=== PATIENT | female | born 1970 | race Caucasian/White ===

== ENCOUNTER → 2016-09-18 | Outpatient (CLI) | payer MEDICAID ==
[~2016-09-18] MED LIST: ALBU8.5H INH; FENO145T18 PO; FESO4TAB PO; LEVO175T9 PO; LITH450T2 PO; QUET100T69 PO; ROSU20TA11 PO; ZIPR40CA27 PO
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
== END ==
LOC: IMA 18:16
PROVIDERS: ATTEND Orthopaedic Surgery
DX: M47.896 Other spondylosis, lumbar region (principal); M51.26 Other intervertebral disc displacement, lumbar region; M12.88 Other specific arthropathies, not elsewhere classified, other specified site; M43.16 Spondylolisthesis, lumbar region; V89.2XXA Person injured in unspecified motor-vehicle accident, traffic, initial encounter; M79.604 Pain in right leg

== ENCOUNTER 2017-04-23 01:02 | Inpatient (IN) ==
--- NOTE | 2017-04-23 01:15 | Emergency Department Report ---
Abdominal Pain HPI - General Stated Complaint: Abd pain Time Seen by Provider: 04/23/17 01:05 Source: patient Mode of arrival: ambulatory Limitations: no limitations - History of Present Illness HPI narrative: Patient has persistent diffuse abdominal pain with a feeling of her right upper quadrant mass. This has been ongoing for 3+ weeks, patient has seen her primary doctor several times, has been using up to 6 doses of MiraLAX a day, tapered doses of MiraLAX using Fleet enemas at home with very little stool output. Tonight the patient returns due to increasing pain and cramping. Patient has tried Aleve for pain without relief. I'll nausea without vomiting, no fevers, and pain the moment seems most focus in the right upper quadrant. However patient states that she has pain diffusely over the entire track of the colon from the right upper quadrant the epigastrium to the left upper quadrant and left lower quadrant. Patient continues to have only occasional hard marbly stool. - Related Data Home Medications Medication Instructions Recorded Confirmed Fenofibrate Nanocrystallized 145 mg PO DAILY #0 11/11/12 04/23/17 [Fenofibrate] Rosuvastatin Calcium [Crestor] 20 mg PO DAILY #0 11/11/12 04/23/17 Fesoterodine SR [Toviaz] 4 mg PO DAILY #0 01/20/14 04/23/17 [place] Carbonate [[place] 450 mg PO BID #0 07/20/15 04/23/17 Carbonate ER] Quetiapine Fumarate 300 mg PO HS #0 01/10/16 04/23/17 ziprasidone 60 mg capsule 40 mg PO BID 01/09/17 04/23/17 Benztropine Mesylate 1 mg PO BID 04/23/17 04/23/17 HydrOXYzine [Atarax] 50 mg PO HS 04/23/17 04/23/17 HydrOXYzine [Atarax] 100 mg PO BIDBL 04/23/17 04/23/17 Levothyroxine Sodium 200 mcg PO DAILY 04/23/17 04/23/17 Levothyroxine Sodium [Levoxyl] 1 tab PO DAILY 04/23/17 04/23/17 Allergies Allergy/AdvReac Type Severity Reaction Status Date / Time levofloxacin Allergy Intermediate BLISTERING Verified 04/23/17 01:52 quetiapine [From Seroquel] Allergy Intermediate Drowsy Verified 04/23/17 01:52 Review of Systems All systems: reviewed and negative except as stated [facility] Medical History (Last Reviewed 01/15/17 @ 09:55 by CAMMIE Trejo) Constipation (Acute Medical) Balance disorder (Chronic Medical) Tremor (Chronic Medical) Stroke (Chronic Medical) Migraine (Chronic Medical) Anxiety (Chronic Medical) Thyroid disease (Chronic Medical) Cataracts, bilateral (Chronic Medical) Medical History Updates: Bi-polar. Constipation Family History: Family History (Last Reviewed 01/15/17 @ 09:55 by CAMMIE Trejo) Mother Arthritis High blood pressure Inflammatory bowel disease Thyroid disease Father High blood pressure High cholesterol - Social History Smoking status: Current every day smoker Physical Exam - Limitations Limitations: no limitations - General General appearance: alert - Normal Exams: Head:: Normocephalic without trauma Eyes:: Pupils are PERRLA w/ EOMI, No scleral icterus, irritation, or foreign bodies noted ENMT:: No facial trauma, nasal exudates, pharyngeal erythema, or exudates are noted Neck:: Full range of motion, without adenopathy, JVD, bruits or thyromegaly Chest/Respirations:: Clear all atkinson, with good airflow, and symmetry bilaterally Cardiovascular:: Regular rate and rhythm, without murmur or gallop, Pulses 2+ all extremities, capillary refill, <2 seconds all extremities Lymphatic:: No lymphadenopathy, or lymphedema noted Musculoskeletal:: No tenderness, or deformity noted, good range of motion, all extremities Integumentary:: No rashes, hives, or bruising noted, hair and nails, without abnormality Neurological:: Patient is alert, and oriented, cranial nerves, motor/sensory/ cerebellar, exams w/o gross deficits, to observation Psychiatric:: Patient exhibits, appropriate attention, emotion and affect - Abdominal Exam Abdominal exam: Present: soft, tenderness (moderate diffuse left-sided tenderness, sharp right tenderness and right upper quadrant with a palpable mass that is also quite tender.), diminished bowel sounds. Absent: distention, hyperactive bowel sounds, organomegaly, trauma, incision, psoas sign, obturator sign, Campbell's sign, Rovsing's sign, tenderness at McBurney's Point, mass, bruit , pulsatile mass, hernia, scar Abdominal Pain - MDM Narrative Medical decision making narrative: Looking at the patient's previous lab, her creatinine continues to be elevated in the 1.5-1.6 range. This seems to indicate either renal insufficiency or significant ongoing dehydration. Examining the patient with significant dry mouth may indicate dehydration. Patient is given 2 L IV bolus, Toradol and Reglan IV for pain and cramps as well as nausea - CBC - normal CMP/L - normal UA/P - concentrated but normal CT abdomen/pelvis - large stool filled colon, constipation, with wall thickening and adjacent fat stranding involving the proximal duodenum concerning for an underlying ulcer. Patient did require additional dose of Dilaudid for pain control. Case is discussed with Dr. Fleming, we will admit the patient for enemas until clear, with surgical consultation and possible EGD. - Lab Data Result diagrams: 04/23/17 01:27 04/23/17 01:27 Disposition Clinical Impression: Duodenal ulcer Constipation Qualifiers: Constipation type: chronic idiopathic constipation Qualified Code(s): K59.04 - Chronic idiopathic constipation Disposition: To NM Condition: Improved Prescriptions: No Action Fenofibrate Nanocrystallized [Fenofibrate] 145 mg PO DAILY #0 Rosuvastatin Calcium [Crestor] 20 mg PO DAILY #0 Fesoterodine SR [Toviaz] 4 mg PO DAILY #0 Levothyroxine Sodium [Levoxyl] 1 tab PO DAILY Benztropine Mesylate 1 mg PO BID HydrOXYzine [Atarax] 50 mg PO HS HydrOXYzine [Atarax] 100 mg PO BIDBL Levothyroxine Sodium 200 mcg PO DAILY [place] Carbonate [[place] Carbonate ER] 450 mg PO BID #0 Quetiapine Fumarate 300 mg PO HS #0 ziprasidone 60 mg capsule 40 mg PO BID Referrals: Bernabe Atkinson MD [Primary Care Provider] - - Seen By: physician
[2017-04-23] MEDS ORDERED: METOCLOPRAMIDE 10mg/2ml INJECTION IVP ONE (01:32)
[2017-04-23] MEDS ORDERED: KETOROLAC 30 MG/ML INJECTION IVP ONE (01:32)
[2017-04-23] MEDS: NS 1,000 ML IV SCH ×4 (01:32→14:16)
[2017-04-23] MEDS: SALINE FLUSH 10ml SYRINGE IVF PRN ×2 (01:33→05:12)
[2017-04-23] MEDS ORDERED: NS 100 ML ONE (01:49)
[2017-04-23] MEDS ORDERED: SALINE FLUSH 10ml SYRINGE ONE (01:49)
[2017-04-23] MEDS ORDERED: IODIXANOL 320mg/ml 100ml INJECTION IV ONE (01:49)
--- OUTSIDE RECORDS SUMMARY | 2017-04-23 02:06 | External Medical Summary ---
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
--- OUTSIDE RECORDS SUMMARY | 2017-04-23 02:07 | External Medical Summary ---
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
--- OUTSIDE RECORDS SUMMARY | 2017-04-23 02:07 | External Medical Summary ---
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
--- OUTSIDE RECORDS SUMMARY | 2017-04-23 02:07 | External Medical Summary ---
:1970 Author Organization [employer] Care Team Providers Name Role Phone Maya Webster Provider Role Unavailable Allergies No Known Allergies Problems Problem Type Condition Code Onset Dates Condition Status Problem Personality disorder, unspecified F60.9 Active Problem Bipolar disorder, current episode F31.62 Active mixed, moderate Problem Opioid dependence, in remission F11.21 Active Problem Panic disorder [episodic paroxysmal F41.0 Active anxiety] without agoraphobia Assessment Other [facility] (current) drug Z79.899 Active therapy Medications Medication Code System Code Instructions Start Date End Date Status Dosage Clonazepam [facility] [address] 2 MG Orally Once a one tab -01 day PRN Results No Known Results Summary Purpose [employer]ClinicalWorks Submission
--- OUTSIDE RECORDS SUMMARY | 2017-04-23 02:07 | External Medical Summary ---
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 Assessment Panic disorder without 300.01 Active agoraphobia Medications Medication Code Code Instructions Start End Status Dosage System Date Date Clonazepam NDC 95528-24 2 MG Orally three one tab 34-01 times a day PRN anxiety Ziprasidone HCl NDC 26323-97 60 MG Orally 1 capsule 71-08 twice a day after with food bkfst and supper for mood stabilization Fenofibrate NDC 67926-52 145 MG Orally 1 tablet 60-98 Once a day Crestor NDC 65106-91 20 MG Orally Once 1 tablet 52-39 a day Benztropine NDC 06874-81 1 MG Orally three 1 tab by Mesylate 00-00 times a day mouth Haloperidol NDC 27550-07 5 MG Orally four 1 tablet 27-01 times a day PRN agitation [place] Carbonate NDC 89160-60 450 MG Orally Feb 24, one tablet ER 20-25 twice daily 2014 every AM and PM Toviaz NDC 90479-42 4 MG Orally Once 1 tablet 42-30 a day Levothyroxine NDC 20905-84 150 MCG Orally 1 tablet Sodium 57-00 Once a day on an empty stomach in the morning [place] Carbon[place] NDC [address]-62 150 MG Orally 1 capsule 26-25 once daily every [place] Seroquel [place]R NDC 75200-67 50 MG Orally once 1/2 tab at 80-39 a day for moods bedtime; if needed may take two 1/2 tabs Procedures Procedure Coding System Code Date OFFICE VISIT, EST-MOD. COMPLEXITY (25 MIN) CPT-4 67208 September 08, 2014 Vital Signs Date/Time: September 08, 2014 Height 68.75 in Weight 253.5 lbs Temperature 98.6 F Blood Pressure Diastolic 86 mm Hg Blood Pressure Systolic 118 mm Hg Cardiac Monitoring Heart Rate 80 /min BMI 37.70 Index Respiratory Rate 16 /min Results No Known Results Summary Purpose eClinicalWorks Submission
--- OUTSIDE RECORDS SUMMARY | 2017-04-23 02:07 | External Medical Summary ---
[...] Instructions Start End Date Status Dosage Date Benztropine [facility] [address]-49 1 MG Orally in 1 tab by Mesylate 00-00 the AM, noon, mouth and evening Results No Known Results Summary Purpose [employer]ClinicalWorks Submission
--- OUTSIDE RECORDS SUMMARY | 2017-04-23 02:07 | External Medical Summary ---
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
--- OUTSIDE RECORDS SUMMARY | 2017-04-23 02:07 | External Medical Summary ---
[...] F41.0 Active anxiety] without agoraphobia Assessment Other [facility] (current) drug Z79.899 Active therapy Medications Medication Code System Code Instructions Start End Date Status Dosage Date [place] NDC [address] 150 MG Orally Jan 29, one daily Carbonate -2015 in the AM [place] NDC [address]-199 300 MG Orally Aug 03, one tablet Carbonate ER 1-25 daily 2014 every PM Results No Known Results Summary Purpose [employer]ClinicalWorks Submission
--- OUTSIDE RECORDS SUMMARY | 2017-04-23 02:08 | External Medical Summary ---
[...] Instructions Start Date End Date Status Dosage Seroquel [facility] [address] 100 MG Orally September 10, 1 tablet at 1-10 Once a day 2014 bedtime Results No Known Results Summary Purpose [employer]ClinicalWorks Submission
--- OUTSIDE RECORDS SUMMARY | 2017-04-23 02:11 | External Medical Summary ---
:1970 Author Organization eClinicalWorks Care Team Providers Name Role Phone Beverly Martinez Provider Role Unavailable Allergies No Known Allergies Problems Problem Type Condition Code Onset Dates Condition Status Problem Personality disorder, unspecified F60.9 Active Problem Bipolar disorder, current episode F31.62 Active mixed, moderate Problem Opioid dependence, in remission F11.21 Active Problem Panic disorder [episodic paroxysmal F41.0 Active anxiety] without agoraphobia Assessment Other [facility]current[facility] drug Z79.899 Active therapy Medications Medication Code Code Instructions Start End Status Dosage System Date [place] T[place]iaz NDC 98245-87 4 MG Orally Once 1 tablet 42-30 a day Benztropine NDC 33078-14 1 MG Orally in 1 tab by Mesylate 00-00 the AM, noon, [place] [address]-50 40 MG Orally 1 capsule 70-08 twice a day after with food bkfst and supper for mood stabilization HydrOXYzine HCl NDC 80749-81 50 MG Orally up November 16, 1 tablet 62-05 to three times a 2014 day as needed for anxiety Crestor NDC 11845-53 20 MG Orally Once 1 tablet 52-39 a day Fenofibrate NDC 269[address]-38 145 MG Orally 1 tablet 60-98 Once a day [place]onazepam NDC [address]268-19 2 MG Orally Once one tab 34-01 a day PRN [place] Carbonate NDC 439[address]-40 300 MG Orally Mar 09, one tablet ER 21-25 twice daily 2015 Seroquel NDC 03343-76 100 MG Orally September 10, 1 tablet 71-10 Once a day 2014 [place] [address]-05 200 MCG Orally 1 tablet Sodium 58-00 Once a day on an empty stomach in the morning Procedures Procedure Coding System Code Date LITHIUM CPT-4 82273 Mar 12, 2016 Results No Known Results Summary Purpose eClinicalWorks Submission
--- OUTSIDE RECORDS SUMMARY | 2017-04-23 02:11 | External Medical Summary ---
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 Assessment Other [facility] (current) drug Z79.899 Active therapy Problem Personality disorder, unspecified F60.9 Active Problem Bipolar disorder, current episode F31.62 Active mixed, moderate Problem Opioid dependence, in remission F11.21 Active Assessment Encounter for long-term (current) V58.69 Active use of other medications Assessment Panic disorder [episodic paroxysmal F41.0 Active anxiety] without agoraphobia Problem Panic disorder [episodic paroxysmal F41.0 Active anxiety] without agoraphobia Assessment Bipolar disorder, current episode F31.62 Active mixed, moderate Medications No Known Medications Results No Known Results Summary Purpose [employer] Submission
--- OUTSIDE RECORDS SUMMARY | 2017-04-23 02:11 | External Medical Summary ---
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
--- OUTSIDE RECORDS SUMMARY | 2017-04-23 02:16 | External Medical Summary ---
[...] Instructions Start End Date Status Dosage Date [place] [facility] [address]-118 450 MG Orally Aug 03, one tablet Carbonate ER 0-25 twice daily 2014 every AM and PM Results No Known Results Summary Purpose [employer]ClinicalWorks Submission
--- OUTSIDE RECORDS SUMMARY | 2017-04-23 02:19 | External Medical Summary ---
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 Problem Panic disorder without 300.01 Active agoraphobia Problem Combinations of drug dependence 304.80 Active excluding opioid type drug, unspecified abuse Problem Bipolar I disorder, most recent 296.62 Active episode (or current) mixed, moderate Assessment Panic disorder without 300.01 Active agoraphobia Assessment Combinations of drug dependence 304.80 Active excluding opioid type drug, unspecified abuse Problem 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 [address]70[address]-11 60 MG Orally 1 capsule 71-08 twice a day after with food bkfst and supper for mood stabilization [place]ero[place] NDC [address]-05 50 MG Orally once 1/2 tab at 80-39 a day for moods bedtime; if needed may take two 1/2 [place] [address]-98 100 MG Orally Aug 03, /2 to 38-01 Once a day 2014 tablet at bedtime [place] [address]-29 1 MG Orally twice 1 tab by Mesylate 00-00 a day mouth [place] Carbonate NDC 418[address]-25 150 mg Orally 1 capsule 26-25 once daily every AM Crestor NDC 57081-10 20 MG Orally Once 1 tablet 52-39 a day Fenofibrate NDC 07239-76 145 MG Orally 1 tablet 60-98 Once a day Toviaz NDC 55741-32 4 MG Orally Once 1 tablet 42-30 a day Haloperidol NDC 21523-28 5 MG Orally four 1 tablet 27-01 times a day PRN agitation Clonazepam NDC 65764-79 2 MG Orally three one tab 34-01 times a day PRN anxiety Levothyroxine [facility] 11616-37 150 MCG Orally 1 tablet Sodium 57-00 Once a day on an empty stomach in the morning [place] Carbonate [facility] 730[address]-27 450 MG Orally Aug 03, one tablet ER 20-25 twice daily 2014 every AM and PM Procedures Procedure Coding System Code Date OFFICE VISIT, EST-MOD. COMPLEXITY (25 MIN) CPT-4 45291 Aug 03, 2014 Vital Signs Date/Time: Aug 03, 2014 Height 68.75 in Weight 258.75 lbs Temperature 98.9 F Blood Pressure Diastolic 92 mm Hg Blood Pressure Systolic 114 mm Hg Cardiac Monitoring Heart Rate 80 /min BMI 38.48 Index Respiratory Rate 28 /min Results No Known Results Summary Purpose eClinicalWorks Submission
--- OUTSIDE RECORDS SUMMARY | 2017-04-23 02:19 | External Medical Summary ---
[...] Start End Status Dosage System [place] NDC 84139-45 20 MG Orally Once 1 tablet 52-39 a day Fenofibrate NDC 57575-16 145 MG Orally 1 tablet 60-98 Once a day Seroquel NDC 19861-58 50 MG Orally Once September 10, 1 tablet 78-10 a day 2014 at bedtime Haloperidol NDC 20196-00 5 MG Orally four 1 tablet 27-01 times a day PRN agitation Ziprasidone HCl NDC 47244-58 40 MG Orally 1 capsule 71-08 twice a day after with food bkfst and supper for mood stabilization [place] Carbonate NDC 58521-09 450 MG Orally Aug 03, one tablet ER 20-25 twice daily 2014 every AM and PM Clonazepam NDC 39430-79 2 MG Orally three one tab 34-01 times a day PRN anxiety [place] Carbonate NDC 89830-76 150 MG Orally 1 capsule 26-25 once daily every AM Benztropine NDC 91911-70 1 MG Orally three 1 tab by Mesylate 00-00 times a day mouth Levothyroxine NDC 20515-02 150 MCG Orally 1 tablet Sodium 57-00 Once a day on an empty stomach in the morning Toviaz NDC 48801-38 4 MG Orally Once 1 tablet 42-30 a day Procedures Procedure Coding System Code Date LIPID PANEL CPT-4 11630 October 20, 2014 CMP CPT-4 08246 October 20, 2014 Results No Known Results Summary Purpose [employer]ClinicalWorks Submission
--- OUTSIDE RECORDS SUMMARY | 2017-04-23 02:19 | External Medical Summary ---
:1970 Author Organization eClinicalWorks Care Team Providers Name Role Phone Maya Webster Provider Role Unavailable Allergies, Adverse Reactions, Alerts Substance Reaction Event Type Seroquel XR sedation Drug Allergy Levaquin rash Drug Allergy Problems Problem Type Condition Code Onset Dates Condition Status Problem Personality disorder, unspecified F60.9 Active Problem Bipolar disorder, current episode F31.62 Active mixed, moderate Problem Opioid dependence, in remission F11.21 Active Assessment Bipolar disorder, current episode F31.62 Active mixed, moderate Problem Panic disorder [episodic paroxysmal F41.0 Active anxiety] without agoraphobia Assessment Panic disorder [episodic paroxysmal F41.0 Active anxiety] without agoraphobia Medications Medication Code Code Instructions Start End Status Dosage System Date Date Benztropine NDC 68048-69 1 MG Orally in 1 tab by Mesylate 00-00 the AM, noon, and mouth evening [place] Carbonate NDC 32523-13 450 MG Orally Aug 03, one tablet ER 20-25 twice daily 2014 every AM and PM Clonazepam NDC 19154-54 2 MG Orally up to one tab 34-01 twice a day as needed Toviaz NDC 48659-16 4 MG Orally Once 1 tablet 42-30 a day HydrOXYzine HCl NDC 46359-41 50 MG Orally up November 16, 1-2 tablet 62-05 to three times a 2014 day as needed for anxiety Levothyroxine NDC 67293-32 175 MCG Orally 1 tablet Sodium 17-01 Once a day on an empty stomach in the morning Ziprasidone HCl NDC 70297-73 40 MG Orally 1 capsule 70-08 twice a day after with food bkfst and supper for mood stabilization Seroquel NDC 05736-34 100 MG Orally September 10, 1 tablet 71-10 Once a day 2014 at bedtime Fenofibrate NDC 54932-52 145 MG Orally 1 tablet 60-98 Once a day [place] Carbonate NDC 45628-54 150 MG Orally 1 capsule 26-25 once daily every am Crestor NDC 29087-01 20 MG Orally Once 1 tablet 52-39 a day Procedures Procedure Coding System Code Date OFFICE VISIT, EST-MOD. COMPLEXITY (25 MIN) CPT-4 16026 September 27, 2015 Vital Signs Date/Time: September 27, 2015 Temperature 98.6 F Height 68.75 in Weight 269.8 lbs Blood Pressure Diastolic 80 mm Hg Blood Pressure Systolic 116 mm Hg Cardiac Monitoring Heart Rate 80 /min BMI 40.13 Index Respiratory Rate 18 /min Results No Known Results Summary Purpose eClinicalWorks Submission
--- OUTSIDE RECORDS SUMMARY | 2017-04-23 02:19 | External Medical Summary ---
[...] Instructions Start End Date Status Dosage Date HydrOXYzine HCl [facility] [address]-720 50 MG Orally up November 16, 1 tablet 2-05 to three times a 2014 day as needed for anxiety Results No Known Results Summary Purpose eClinicalWorks Submission
--- OUTSIDE RECORDS SUMMARY | 2017-04-23 02:19 | External Medical Summary ---
[...] Medications Medication Code Code Instructions Start End Date Status Dosage System Date Ziprasidone HCl [facility] 02151-07 40 MG Orally 1 capsule 70-08 twice a day after with food bkfst and supper for mood stabilization Results No Known Results Summary Purpose [employer] Submission
--- OUTSIDE RECORDS SUMMARY | 2017-04-23 02:19 | External Medical Summary ---
[...] Instructions Start End Date Status Dosage Date Seroquel NDC 52125-30 50 MG Orally September 10, 1 tablet at 78-10 Once a day 2014 bedtime [place] NDC 90390-78 150 MG Orally 1 capsule Carbonate 26-25 once daily every AM Clonazepam NDC 72877-47 2 MG Orally one tab 34-01 three times a day PRN anxiety Results No Known Results Summary Purpose eClinicalWorks Submission
--- OUTSIDE RECORDS SUMMARY | 2017-04-23 02:21 | External Medical Summary ---
[...] Start Date End Date Status Dosage Clonazepam [facility] [address] 2 MG Orally three one tab -01 times a day PRN anxiety Results No Known Results Summary Purpose [employer] Submission
--- OUTSIDE RECORDS SUMMARY | 2017-04-23 02:23 | External Medical Summary ---
:1970 Author Organization eClinicalWorks Care Team Providers Name Role Phone Martinez Beverly Provider Role Unavailable Allergies No Known Allergies Problems Problem Type Condition Code Onset Dates Condition Status Problem Personality disorder, unspecified F60.9 Active Problem Bipolar disorder, current episode F31.62 Active mixed, moderate Problem Opioid dependence, in remission F11.21 Active Problem Panic disorder [episodic paroxysmal F41.0 Active anxiety] without agoraphobia Assessment Bipolar disorder, current episode F31.62 Active mixed, moderate Medications Medication Code Code Instructions Start End Status Dosage System Date Date Fenofibrate NDC 29325-36 145 MG Orally 1 tablet 60-98 Once a day Toviaz NDC 46104-64 4 MG Orally Once 1 tablet 42-30 a day Clonazepam NDC 81510-94 2 MG Orally Once one tab 34-01 [place] [address]-36 40 MG Orally 1 capsule 70-08 twice a day after with food bkfst and supper for mood stabilization Benztropine NDC 58579-67 1 MG Orally in 1 tab by Mesylate 00-00 the AM, noon, and mouth evening Seroquel NDC 03061-72 100 MG Orally September 10, 1 tablet 71-10 Once a day 2014 at bedtime Crestor NDC 90675-98 20 MG Orally Once 1 tablet 52-39 [place] [address]-60 200 MCG Orally 1 tablet Sodium 58-00 Once a day on an empty stomach in the morning [place] Carbonate NDC 10280-86 450 MG Orally Mar 09, one tablet ER 20-25 twice daily 2015 [place] [address]-80 50 MG Orally up November 16, 1-2 tablet 62-05 to three times a 2014 day as needed for anxiety Procedures Procedure Coding System Code Date LITHIUM CPT-4 55004 Apr 17, 2016 Results No Known Results Summary Purpose eClinicalWorks Submission
--- OUTSIDE RECORDS SUMMARY | 2017-04-23 02:23 | External Medical Summary ---
[...] End Date Status Dosage Date HydrOXYzine HCl [facility] 02908-80 50 MG Orally up November 16, 1-2 tablet 62-05 to three times a 2014 day as needed for anxiety Results No Known Results Summary Purpose [employer] Submission
--- OUTSIDE RECORDS SUMMARY | 2017-04-23 02:23 | External Medical Summary ---
[...] Active excluding opioid type drug, unspecified abuse Assessment Panic disorder [episodic paroxysmal F41.0 Active anxiety] without agoraphobia Problem Panic disorder [episodic paroxysmal F41.0 Active anxiety] without agoraphobia Assessment Bipolar disorder, current episode F31.62 Active mixed, moderate Medications Medication Code Code Instructions Start End Status Dosage System Date Date Benztropine NDC 22496-70 1 MG Orally two 1 tab by Mesylate 00-00 times a day mouth Crestor NDC 10735-17 20 MG Orally Once 1 tablet 52-39 a day [place] Carbonate NDC 72461-45 150 MG Orally 1 capsule 26-25 once daily every am [place] Carbonate NDC 84960-16 450 MG Orally Aug 03, one tablet ER 20-25 twice daily 2014 every AM and PM Levothyroxine NDC 49361-21 175 MCG Orally 1 tablet Sodium 17-01 Once a day on an empty stomach in the morning Clonazepam NDC 79574-30 2 MG Orally up to one tab 34-01 twice a day as needed Fenofibrate NDC 72921-88 145 MG Orally 1 tablet 60-98 Once a day Toviaz NDC 72073-30 4 MG Orally Once 1 tablet 42-30 a day Seroquel NDC 07226-85 50 MG Orally Once September 10, 1-2 78-10 a day 2015 tablets [place] [address]-02 40 MG Orally 1 capsule 70-08 twice a day after with food bkfst and supper for mood stabilization HydrOXYzine HCl NDC 37661-89 50 MG Orally up November 16, 1 tablet 62-05 to three times a 2014 day as needed for anxiety Procedures Procedure Coding System Code Date OFFICE VISIT, EST-MOD. COMPLEXITY (25 MIN) CPT-4 96963 Apr 12, 2015 Vital Signs Date/Time: Apr 12, 2015 Height 68.75 in Weight 264.8 lbs Temperature 98.8 F Blood Pressure Diastolic 80 mm Hg Blood Pressure Systolic 116 mm Hg Cardiac Monitoring Heart Rate 82 /min BMI 39.38 Index Respiratory Rate 18 /min Results No Known Results Summary Purpose eClinicalWorks Submission
--- OUTSIDE RECORDS SUMMARY | 2017-04-23 02:23 | External Medical Summary ---
[...] Instructions Start End Date Status Dosage Date [place] [facility] [address]38[address]-402 300 MG Orally Aug 03, one tablet Carbonate ER 1-25 daily 2014 every PM Results No Known Results Summary Purpose eClinicalWorks Submission
--- OUTSIDE RECORDS SUMMARY | 2017-04-23 02:23 | External Medical Summary ---
[...] F41.0 Active anxiety] without agoraphobia Assessment Other long term care social worker (current) drug Z79.899 Active therapy Medications Medication Code System Code Instructions Start End Date Status Dosage Date HydrOXYzine HCl NDC 55975-27 50 MG Orally up November 16, 1 tablet 62-05 to three times a 2014 day as needed for anxiety Benztropine NDC 14851-01 1 MG Orally in 1 tab by Mesylate 00-00 the AM, noon, mouth and evening [place] NDC 88790-80 300 MG Orally Feb 24, one tablet Carbonate ER 21-25 twice daily 2014 every AM and PM Clonazepam NDC 63915-29 2 MG Orally up one tab 34-01 to twice a day as needed Results No Known Results Summary Purpose eClinicalWorks Submission
--- OUTSIDE RECORDS SUMMARY | 2017-04-23 02:23 | External Medical Summary ---
:1970 Author Organization eClinicalWorks Care Team Providers Name Role Beverly Watkins Provider Role Unavailable Allergies No Known Allergies Problems Problem Type Condition Code Onset Dates Condition Status Problem Personality disorder, unspecified F60.9 Active Problem Bipolar disorder, current episode F31.62 Active mixed, moderate Problem Opioid dependence, in remission F11.21 Active Problem Panic disorder [episodic paroxysmal F41.0 Active anxiety] without agoraphobia Medications Medication Code System Code Instructions Start Date End Date Status Dosage Clonazepam [facility] [address] 2 MG Orally Once a one tab -01 day PRN Results No Known Results Summary Purpose eClinicalWorks Submission
--- OUTSIDE RECORDS SUMMARY | 2017-04-23 02:23 | External Medical Summary ---
[...] End Date Status Dosage Date Seroquel NDC 43556-63 50 MG Orally September 10, 1 tablet at 78-10 Once a day 2014 bedtime [place] NDC 82120-36 150 MG Orally 1 capsule Carbonate 26-25 once daily every AM Clonazepam NDC 31081-84 2 MG Orally one tab 34-01 three times a day PRN anxiety Results No Known Results Summary Purpose eClinicalWorks Submission
[2017-04-23] MEDS ORDERED: HYDROMORPHONE 2 MG/ML INJECTION IVP ONE (02:36)
[2017-04-23] MEDS ORDERED: INFLUENZA VAC. INJ. ADMIN CHARGE INJ ONE (03:22)
[2017-04-23] MEDS ORDERED: ONDANSETRON 4 MG/2 ML INJECTION IVP PRN (03:36)
[2017-04-23] MEDS ORDERED: POLYETHYL. GLYCOL 3350 BOTTLE 238 GM PO SCH (03:36)
[2017-04-23 03:40] VITALS: BMI 42.4
--- NOTE | 2017-04-23 04:11 | History & Physical Report ---
History of Present Illness Date: 04/23/17 Chief complaint: abdomen pain HPI: This is a 46 y/o female with a history of chronic constipation who presents to the ED tonight due to increased abdomen pain with ongoing nausea. The patient has been to the ED x 2 in the past week and seen PCP x 3 . The patient has been on miralax and enema at home without effect. Because of increased abdomen pain the patient had a CT of the abdomen which demonstrated changes in proximal duodenum which raised suspicion of duodenal ulcer. At this time the patient is to be admitted for further assessment of her chronic constipation and ongoing concern for duodenal ulcer. . Review of Systems Review of systems: no headache, no fever, chills or sweats, no neck pain, no chest pain, no cough, no congestion, abdomen pain in epigastric region with nausea no emesis, last normal bm ? 6 weeks ago and last bm ? 2 weeks ago. No blood in stools. This is worse than usual for the patient. no skin rashes, no focal neuro complaints. 10 point ROS otherwise negative except for outlined above. [facility] Patient Stated Medical History Migraine Yes Other GI Yes: constipation Bipolar Disorder Yes Clinic Medical History (Last Reviewed 01/15/17 @ 09:55 by CAMMIE Trejo) Constipation (Acute Medical) Duodenal ulcer (Acute Medical) Balance disorder (Chronic Medical) Tremor (Chronic Medical) Stroke (Chronic Medical) Migraine (Chronic Medical) Anxiety (Chronic Medical) Thyroid disease (Chronic Medical) Cataracts, bilateral (Chronic Medical) Medical History Updates: Bi-polar. Constipation Family History: Family History (Last Reviewed 01/15/17 @ 09:55 by CAMMIE Trejo) Mother Arthritis High blood pressure Inflammatory bowel disease Thyroid disease Father High blood pressure High cholesterol - Social History Smoking status: Current every day smoker Substance use type: does not use Alcohol intake frequency: does not drink Household members: family service: No Current occupational status: unemployed, disabled Current occupational exposures/hazards: No Does patient use chewing tobacco?: No Current residence: Apartment/Private Home Medications Home Medications Medication Instructions Recorded Confirmed Type Fenofibrate Nanocrystallized 145 mg PO DAILY #0 11/11/12 04/23/17 History [Fenofibrate] Rosuvastatin Calcium [Crestor] 20 mg PO DAILY #0 11/11/12 04/23/17 History Fesoterodine SR [Toviaz] 4 mg PO DAILY #0 01/20/14 04/23/17 History [place] Carbonate [[place] 450 mg PO BID #0 07/20/15 04/23/17 History Carbonate ER] Quetiapine Fumarate 300 mg PO HS #0 01/10/16 04/23/17 History ziprasidone 60 mg capsule 40 mg PO BID 01/09/17 04/23/17 History Benztropine Mesylate 1 mg PO BID 04/23/17 04/23/17 History HydrOXYzine [Atarax] 50 mg PO HS 04/23/17 04/23/17 History HydrOXYzine [Atarax] 100 mg PO BIDBL 04/23/17 04/23/17 History Levothyroxine Sodium 200 mcg PO DAILY 04/23/17 04/23/17 History Levothyroxine Sodium [Levoxyl] 1 tab PO DAILY 04/23/17 04/23/17 History Allergies Allergy/AdvReac Type Severity Reaction Status Date / Time levofloxacin Allergy Intermediate BLISTERING Verified 04/23/17 01:52 quetiapine [From Seroquel] Allergy Intermediate Drowsy Verified 04/23/17 01:52 Exam Vital Signs: Temperature 97.9 F 04/23/17 01:05 Pulse Rate 70 04/23/17 02:45 Respiratory Rate 18 04/23/17 02:45 Blood Pressure 177/98 H 04/23/17 03:15 Pulse Oximetry 95 04/23/17 02:45 Telemetry Rhythm: Sinus Rhythm Height/Weight/BMI: Height 1.73 m Weight 126.6 kg Body Mass Index 42.4 - Constitutional Present: no acute distress, well nourished, well developed, morbidly obese, cooperative - Routine HEENT Exam Head: Present: normocephalic, atraumatic Eye: Present: EOMI, conjunctivae pink. Absent: scleral injection ENT: Present: mucous membranes moist - Routine Neck Exam Present: supple, full ROM - Routine Respiratory Exam Present: CTA bilaterally. Absent: rales, wheezes - Routine Cardiovascular Exam Present: RRR, no murmur - Routine Abdominal Exam Present: soft, normoactive bowel sounds, non distended Comments: morbidly obese, bowel sounds normal. mild tender to epigastric region - Routine Extremities Exam Present: full ROM - Routine Back/Spine/Pelvis Exam Back/Spine: Present: full ROM - Routine Skin Exam Present: dry - Routine Neurological Exam Present: alert, oriented X3 - Routine Psychiatric Exam Present: normal affect, normal thought process Results - Labs CBC & Chem 7: 04/23/17 04:36 04/23/17 04:36 Labs: labs reviewed and demonstrates worening renal funciton - Imaging and Cardiology CT scan - abdomen Additional comments: reported to have sig stool in rectum and sigmoid colon. fat stranding surrounding prox duodenum concerning for DU no evidence of free air Assessment and Plan (1) Obstipation Current visit: Yes Status: Acute (2) Duodenal ulcer Current visit: Yes Status: Acute (3) Anxiety Current visit: No Status: Chronic (4) Thyroid disease Current visit: No Status: Chronic (5) Bipolar 1 disorder Current visit: Yes Status: Acute (6) Acute kidney injury Current visit: Yes Status: Acute (7) Hypertension Current visit: Yes Status: Acute Assessment and Plan: 1. obstipation acute POA: start with miralax and enema. once comfortable regarding DU? will start more agressive approach including golytly. This patient needs to minimize narcotics. check TSH to ensure adequate replacement 2. duodenal ulcer acute POA: iv ppi. reasses. npo incase need to do endoscopy in next 24 hours 3. acute kidney injury POA: ivf, and repeat labs. probable secondary to decreased po intake. must worry about meds she is on and affect of decreased grf including lithium. hold lithium and check level. 4. Bipolar disease: appears intact. patient readily recognizes she has. again work with pharmacy to dose with her meds that she is taking and renal ds 5. dvt ppx; scd 6. gastric ppx; ppi 7. hypothyroid chronic POA: check tsh, free t4, pertains to constipation I have independently interviewed and examined the patient. Chart reviewed. Above note reviewed and concur. 46-year-old with hx of constipation. She saw Dr. Atkinson on 04/17. Her last bowel movement might have been on 04/10. She tried Miralax and Milk of Mag but was having no results. She also was seen in the er twice. CT a/p raised the possibility of duodenitis vs. ulcer. Patient was placed in observation. She has had an enema and thinks things might be moving. She has had flatus. She has no appetite and has had nausea. PH/SH/FH reviewed. Would add family history of inflammatory bowel - her mother. ROS: see above. remainder of 10 point ros is negative. PE:VS: 97.0 133/100 HR 65 RR18 100% RA GEN: nad HEENT: nc/at, perrl, eomi neck: supple lungs: ctab cv: rrr w/o m,r,g abd: s/nt/nd, hypoactive bs ext: no edema neuro: cn II-XII intact psych: anxious Impression obstipation possible duodenal ulcer LEODAN vs. CKD bipolar disease elevated bp hypothyroid tobacco abuse Plan Enemas q2 until results. Start on scheduled Miralax. BID IV Protonix. HGB is wnl. Can defer EGD. Per patient, PCP has encouraged her to have colonoscopy, also. Continue IVF. Check urine Na, Cr. Monitor BP. Continue home psych meds. TSH elevated. Check free t4. Nicotine patch available. DVT Prophylaxis: SCD's GI Prophylaxis: Protonix Resuscitation Status: Full Code - Time spent with patient Time with patient PN: 50 minutes Hospital Course Summary Disclaimer: The visit summary below is not to be considered part of the above Progress Note. Hospital Course: 04/23/17 16:28 Impression obstipation possible duodenal ulcer LEODAN vs. CKD bipolar disease elevated bp hypothyroid tobacco abuse Plan Enemas q2 until results. Start on scheduled Miralax. BID IV Protonix. HGB is wnl. Can defer EGD. Per patient, PCP has encouraged her to have colonoscopy, also. Continue IVF. Check urine Na, Cr. Monitor BP. Continue home psych meds. TSH elevated. Check free t4. Nicotine patch available.
[2017-04-23] MEDS: PANTOPRAZOLE 40 MG INJECTION IVP SCH ×2 (04:18→21:45)
[2017-04-23] MEDS: HYDRALAZINE 20 MG/ML INJECTION IVP PRN (04:35)
[2017-04-23] MEDS: NICOTINE 14 MG PATCH TD SCH ×2 (04:46→08:19)
[2017-04-23] MEDS: MORPHINE SULFATE 2mg INJECTION IVP PRN ×4 (05:12→22:04)
--- NOTE | 2017-04-23 08:00 | CT Scan Report ---
Indication: progressive generalized abd pain PROCEDURE: CT abdomen pelvis w con: Encounter: Initial Comparison: None Technique: Axial CT images were performed through the abdomen and pelvis after the administration of intravenous contrast. Coronal and sagittal two-dimensional reformats. Automated Exposure Control and Iterative Reconstruction dose reducing techniques were utilized. Contrast: Visipaque 320 100 mL Findings: The lung bases are clear. Liver shows no enhancing mass or bile duct dilatation. The gallbladder is unremarkable. The spleen, pancreas and adrenal glands are within normal limits. The kidneys are normal. No abdominal or pelvic lymphadenopathy. Bladder is normal. Uterus is absent. No evidence of bowel obstruction. Possible wall thickening in the second portion of the duodenum with trace adjacent inflammation. Bone windows show no acute findings. Appendix is normal. Impression: Possible duodenitis versus ulcer disease in the second portion of the duodenum. Upper endoscopy may be helpful. There is a preliminary report by [employer]. .
[2017-04-23] MEDS: NICOTINE PATCH REMOVAL TD SCH (08:21)
[2017-04-23] MEDS ORDERED: PANTOPRAZOLE 40 MG INJECTION IVP SCH (09:00)
[2017-04-23] MEDS: LITHIUM CARBONATE 450 MG PO SCH ×2 (13:54→21:48)
[2017-04-23] MEDS: FENOFIBRATE 145 MG PO SCH (13:55)
[2017-04-23] MEDS: --POM--LEVOTHYROXINE 50 MCG TABLET PO SCH (13:57)
[2017-04-23] MEDS: LEVOTHYROXINE 200 MCG PO SCH (13:57)
[2017-04-23] MEDS: FESOTERODINE 4 MG PO SCH (14:03)
[2017-04-23] MEDS ORDERED: ZIPRASIDONE 40 MG PO SCH (21:00)
[2017-04-23] MEDS ORDERED: INFLUENZA VAC QIV 2017-18 (Fluarix*)(>=3yo) 0.5ml IM ONE (21:00)
[2017-04-23] MEDS ORDERED: HYDROXYZINE 50 MG PO SCH (21:00)
[2017-04-23] MEDS ORDERED: BENZTROPINE MESYLATE 1 MG PO SCH (21:00)
[2017-04-23] MEDS: BENZTROPINE 1 MG PO SCH (21:47)
[2017-04-23] MEDS: QUETIAPINE 100 MG PO SCH (21:48)
[2017-04-24] MEDS: NS 1,000 ML IV SCH ×2 (00:32→11:36)
[2017-04-24] MEDS: HYDROXYZINE 50 MG PO SCH ×3 (08:33→18:36)
[2017-04-24] MEDS: BENZTROPINE 1 MG PO SCH ×2 (08:34→18:36)
[2017-04-24] MEDS: FESOTERODINE 4 MG PO SCH (08:35)
[2017-04-24] MEDS: --POM--LEVOTHYROXINE 50 MCG TABLET PO SCH (08:36)
[2017-04-24] MEDS: LEVOTHYROXINE 200 MCG PO SCH (08:37)
[2017-04-24] MEDS: NICOTINE 14 MG PATCH TD SCH (08:37)
[2017-04-24] MEDS: NICOTINE PATCH REMOVAL TD SCH (08:38)
[2017-04-24] MEDS: ROSUVASTATIN 20 MG PO SCH (08:40)
[2017-04-24] MEDS: LITHIUM CARBONATE 450 MG PO SCH ×2 (08:40→18:37)
[2017-04-24] MEDS: PANTOPRAZOLE 40 MG INJECTION IVP SCH ×2 (08:49→20:13)
[2017-04-24] MEDS ORDERED: ZIPRASIDONE 40 MG PO SCH (09:00)
[2017-04-24] MEDS: POLYETHYL GLYCOL 3350 17gm PACKET PO SCH ×2 (11:36→20:14)
[2017-04-24] MEDS: MORPHINE SULFATE 2mg INJECTION IVP PRN ×2 (11:37→18:29)
[2017-04-24] MEDS: FENOFIBRATE 145 MG PO SCH (12:58)
--- NOTE | 2017-04-24 15:42 | XRay Report ---
Indication: obstipation, abdominal pain PROCEDURE: XR KUB w upright: Encounter: Initial Comparison: April 15, 2017 Findings: Lung bases are clear. No free air identified. Decreasing colonic stool burden with a moderate amount of stool remaining in the colon. No abnormally dilated small bowel loops appreciated. Bony structures are unchanged. Impression: No acute disease process seen. Improving constipation. .
--- NOTE | 2017-04-24 16:38 | Progress Note ---
- Date 04/24/17 Subjective: Rosemary had a large stool with soap suds enema last night. She has been taking laxatives today and feeling increasingly bloated. She complained of abdominal pain and was tender to RUQ. KUB shows improving constipation. d/w nurse about repeating soap suds enema if no results. Patient does not have any appetite. She complains of reflux associated with the bloating. No nausea at this time. d/ w patient the findings of a possible duodenal ulcer, suggested on CT. Objective Vital signs: Temperature 97.7 F 04/24/17 15:46 Pulse Rate 67 04/24/17 15:46 Respiratory Rate 16 04/24/17 15:46 Blood Pressure 150/89 H 04/24/17 15:46 Pulse Oximetry 100 04/24/17 15:46 Height/Weight/BMI: Height 5 ft 8 in Weight 126.6 kg Body Mass Index 42.4 - Constitutional Present: mild distress - Routine HEENT Exam Eye: Present: EOMI ENT: Present: mucous membranes moist, dentition normal - Routine Respiratory Exam Present: CTA bilaterally - Routine Cardiovascular Exam Present: RRR, no murmur - Routine Abdominal Exam Present: tenderness, distended. Absent: rebound, guarding Comments: RUQ tender - Routine Extremities Exam Present: normal capillary refill - Routine Skin Exam Present: dry, warm - Routine Neurological Exam Present: alert, oriented X3, CN II-XII intact Results - Labs CBC & Chem 7: 04/24/17 04:57 04/24/17 04:57 Assessment and Plan (1) Obstipation Current visit: Yes Status: Acute (2) Duodenal ulcer Current visit: Yes Status: Acute (3) Anxiety Current visit: No Status: Chronic (4) Thyroid disease Current visit: No Status: Chronic (5) Bipolar 1 disorder Current visit: Yes Status: Acute (6) Acute kidney injury Current visit: Yes Status: Acute (7) Hypertension Current visit: Yes Status: Acute Assessment and Plan: Impression obstipation possible duodenal ulcer LEODAN vs. CKD bipolar disease elevated bp hypothyroid tobacco abuse Plan Miralax with prn MOM ordered. Repeat soap suds enemas if needed. BID IV Protonix. HGB remains wnl. d/w patient deferring EGD because hgb is stable and she is on PPI treatment.. Per patient, PCP has encouraged her to have colonoscopy, also. Cr improved with IVF. urine Na, Cr pending. Monitor BP. Continue home psych meds. TSH elevated. Free t4 pending. Nicotine patch available. Hospital Course Summary Disclaimer: The visit summary below is not to be considered part of the above Progress Note. Hospital Course: 04/23/17 16:28 Impression obstipation possible duodenal ulcer LEODAN vs. CKD bipolar disease elevated bp hypothyroid tobacco abuse Plan Enemas q2 until results. Start on scheduled Miralax. BID IV Protonix. HGB is wnl. Can defer EGD. Per patient, PCP has encouraged her to have colonoscopy, also. Continue IVF. Check urine Na, Cr. Monitor BP. Continue home psych meds. TSH elevated. Check free t4. Nicotine patch available. 04/24/17 16:47 Miralax with prn MOM ordered. Repeat soap suds enemas if needed. BID IV Protonix. HGB remains wnl. d/w patient deferring EGD because hgb is stable and she is on PPI treatment.. Per patient, PCP has encouraged her to have colonoscopy, also. Cr improved with IVF. urine Na, Cr pending. Monitor BP. Continue home psych meds. TSH elevated. Free t4 pending. Nicotine patch available.
[2017-04-24] MEDS: SALINE FLUSH 10ml SYRINGE IVF PRN (18:30)
[2017-04-24] MEDS: ClonazePAM 0.5 MG TABLET PO SCH (18:33)
[2017-04-24] MEDS: ZIPRASIDONE 40 MG PO SCH (18:38)
[2017-04-24] MEDS ORDERED: LITHIUM CARBONATE 450 MG PO SCH (21:00)
[2017-04-24] MEDS: QUETIAPINE 100 MG PO SCH (21:12)
[2017-04-25] MEDS ORDERED: LORazepam 0.5 MG TABLET PO PRN (00:02)
[2017-04-25] MEDS: HYDROCODONE/APAP 5mg/325mg TABLET PO PRN ×5 (00:11→22:00)
[2017-04-25] MEDS: NS 1,000 ML IV SCH ×2 (00:13→12:54)
[2017-04-25] MEDS: FESOTERODINE 4 MG PO SCH (09:14)
[2017-04-25] MEDS: ClonazePAM 0.5 MG TABLET PO SCH ×2 (09:15→17:16)
[2017-04-25] MEDS: LITHIUM CARBONATE 450 MG PO SCH ×2 (09:15→17:16)
[2017-04-25] MEDS: HYDROXYZINE 50 MG PO SCH ×3 (09:15→17:16)
[2017-04-25] MEDS: FENOFIBRATE 145 MG PO SCH (09:15)
[2017-04-25] MEDS: BENZTROPINE 1 MG PO SCH ×2 (09:15→17:15)
[2017-04-25] MEDS: LEVOTHYROXINE 200 MCG PO SCH (09:16)
[2017-04-25] MEDS: ZIPRASIDONE 40 MG PO SCH ×2 (09:16→17:16)
[2017-04-25] MEDS: --POM--LEVOTHYROXINE 50 MCG TABLET PO SCH (09:16)
[2017-04-25] MEDS: POLYETHYL GLYCOL 3350 17gm PACKET PO SCH ×2 (09:17→22:00)
[2017-04-25] MEDS: ROSUVASTATIN 20 MG PO SCH (09:17)
[2017-04-25] MEDS: NICOTINE 14 MG PATCH TD SCH (09:24)
[2017-04-25] MEDS: NICOTINE PATCH REMOVAL TD SCH (09:25)
--- NOTE | 2017-04-25 10:59 | Progress Note ---
<Cammy Ricks D - Last Filed: 04/25/17 11:03> - Date 04/25/17 Subjective: Rosemary is feeling miserable. She has extreme pain, which she describes as sharp, sonya to RLQ. She had 2 small bm yest after soap suds enema. She c/o feeling chilled and last night was a bit warm, which is odd for her. She denies n/v. She denies feeling weak or dizzy. No SOA. Objective Vital signs: Temperature 96.4 F L 04/25/17 08:00 Pulse Rate 79 04/25/17 08:00 Respiratory Rate 20 04/25/17 08:00 Blood Pressure 160/124 H 04/25/17 08:34 Pulse Oximetry 98 04/25/17 08:00 Height/Weight/BMI: Height 1.73 m Weight 125.5 kg Body Mass Index 42.4 - Constitutional Present: no acute distress, well nourished, well developed - Routine HEENT Exam Eye: Absent: conjunctival icterus ENT: Present: mucous membranes moist, oropharynx clear - Routine Respiratory Exam Present: CTA bilaterally - Routine Cardiovascular Exam Present: RRR, S1, S2 - Routine Abdominal Exam Present: normoactive bowel sounds (slightly hypoactive), tenderness (diffuse, worse RLQ) - Routine Extremities Exam Present: edema (trace ble) - Routine Musculoskeletal Exam Musculoskeletal: Present: moving extremities well - Routine Skin Exam Present: intact, dry, warm - Routine Neurological Exam Present: alert, oriented X3, CN II-XII intact, normal speech - Routine Psychiatric Exam Present: normal thought process, cooperative Results - Labs CBC & Chem 7: 04/24/17 04:57 04/25/17 04:26 Assessment and Plan (1) Duodenal ulcer Current visit: Yes Status: Acute (2) Obstipation Current visit: Yes Status: Acute (3) Acute kidney injury Current visit: Yes Status: Acute Assessment and Plan: Impression obstipation possible duodenal ulcer LEODAN vs. CKD bipolar disease elevated bp hypothyroid tobacco abuse Plan Very little results yesterday following soap suds enemas - 2 small bowel movements. Will give lactulose x1 and mag citrate x1 bottle. Midline placed per ns generated order set. Free T4 still pending. Renal function improved - BUN 15 & creatinine 1.4. Electrolytes stable. D/W Dr. Gaviria. DVT Prophylaxis: SCD's GI Prophylaxis: Protonix Resuscitation Status: Full Code Hospital Course Summary Disclaimer: The visit summary below is not to be considered part of the above Progress Note. Hospital Course: 04/23/17 16:28 Impression obstipation possible duodenal ulcer LEODAN vs. CKD bipolar disease elevated bp hypothyroid tobacco abuse Plan Enemas q2 until results. Start on scheduled Miralax. BID IV Protonix. HGB is wnl. Can defer EGD. Per patient, PCP has encouraged her to have colonoscopy, also. Continue IVF. Check urine Na, Cr. Monitor BP. Continue home psych meds. TSH elevated. Check free t4. Nicotine patch available. 04/24/17 16:47 Miralax with prn MOM ordered. Repeat soap suds enemas if needed. BID IV Protonix. HGB remains wnl. d/w patient deferring EGD because hgb is stable and she is on PPI treatment.. Per patient, PCP has encouraged her to have colonoscopy, also. Cr improved with IVF. urine Na, Cr pending. Monitor BP. Continue home psych meds. TSH elevated. Free t4 pending. Nicotine patch available. <Isaak Gaviria IV - Last Filed: 04/25/17 16:08> - Date 04/25/17 Objective Vital signs: Temperature 98.0 F 04/25/17 14:22 Pulse Rate 74 04/25/17 14:22 Respiratory Rate 20 04/25/17 14:22 Blood Pressure 163/108 H 04/25/17 14:22 Pulse Oximetry 99 04/25/17 14:22 Height/Weight/BMI: Height 5 ft 8 in Weight 125.5 kg Body Mass Index 42.4 Results - Labs CBC & Chem 7: 04/24/17 04:57 04/25/17 04:26 Assessment and Plan (1) Duodenal ulcer Current visit: Yes Status: Acute (2) Obstipation Current visit: Yes Status: Acute (3) Acute kidney injury Current visit: Yes Status: Acute Assessment and Plan: I have independently evaluated and examined this patient. I reviewed the chart, the patient's history, and the PLANT OPERATIONS WORKER/PA's documented findings as above. We discussed and formulated the assessment and plan as above with additions as below: Rosemary says she had good results from an enema about 11 am. She says she is feeling a little better but still is having abdominal cramps. She thinks she might be able to eat some mashed potatoes. She is concerned about her blood pressure being high and now understands this may be d/t pain. She is concerned about her kidneys. She was going to talk to her psychiatrist about her lithium with the level of 1.6. Mild distress. CTAB. RRR. Abdomen is less distended with diffuse pain. +bs. Trace edema. Admit to inpatient. Continue scheduled Miralax. Advance to soft diet. LEODAN improving. Repeat BMP. Start amlodipine. Might be ready for dismissal tomorrow if she continues to improve. Free T4 still pending. Hospital Course Summary Disclaimer: The visit summary below is not to be considered part of the above Progress Note. Hospital Course: 04/25/17 16:04 Continue scheduled Miralax. Advance to soft diet. Repeat BMP. Start amlodipine. Might be ready for dismissal tomorrow if she continues to improve.
[2017-04-25] MEDS ORDERED: MAGNESIUM CITRATE 296ml PO ONE (11:01)
[2017-04-25] MEDS ORDERED: LACTULOSE 20 GM/30 ML ORAL LIQUID PO ONE (11:01)
[2017-04-25] MEDS: HYDRALAZINE 20 MG/ML INJECTION IVP PRN (12:19)
[2017-04-25] MEDS: PANTOPRAZOLE 40 MG INJECTION IVP SCH ×2 (12:27→22:00)
[2017-04-25] MEDS: AMLODIPINE 5 MG TABLET PO SCH (17:15)
[2017-04-25] MEDS: QUETIAPINE 100 MG PO SCH (22:00)
[2017-04-26 07:49] VITALS: BP 146/89; PULSE 76; RESP 18; TEMP 98.3; O2SAT 97
[2017-04-26] MEDS: NICOTINE 14 MG PATCH TD SCH (08:47)
[2017-04-26] MEDS: POLYETHYL GLYCOL 3350 17gm PACKET PO SCH (08:47)
[2017-04-26] MEDS: FENOFIBRATE 145 MG PO SCH (08:48)
[2017-04-26] MEDS: ClonazePAM 0.5 MG TABLET PO SCH (08:48)
[2017-04-26] MEDS: AMLODIPINE 5 MG TABLET PO SCH (08:48)
[2017-04-26] MEDS: BENZTROPINE 1 MG PO SCH (08:48)
[2017-04-26] MEDS: LITHIUM CARBONATE 450 MG PO SCH (08:49)
[2017-04-26] MEDS: ZIPRASIDONE 40 MG PO SCH (08:49)
[2017-04-26] MEDS: HYDROXYZINE 50 MG PO SCH ×2 (08:49→12:15)
[2017-04-26] MEDS: FESOTERODINE 4 MG PO SCH (08:49)
[2017-04-26] MEDS: LEVOTHYROXINE 200 MCG PO SCH (08:49)
[2017-04-26] MEDS: --POM--LEVOTHYROXINE 50 MCG TABLET PO SCH (08:49)
[2017-04-26] MEDS: NICOTINE PATCH REMOVAL TD SCH (08:50)
[2017-04-26] MEDS: ROSUVASTATIN 20 MG PO SCH (08:50)
[2017-04-26] MEDS: PANTOPRAZOLE 40 MG INJECTION IVP SCH (08:51)
--- NOTE | 2017-04-26 14:19 | Discharge Summary ---
<Kyra Hernandez - Last Filed: 04/26/17 14:15> Discharge Information Date of admission: 04/25/17 13:07 Anticipated date of discharge: 04/26/17 Attending Physician: Isaak Gaviria IV, MD Primary care physician: Bernabe Atkinson MD - Discharge Diagnosis (1) Duodenal ulcer Status: Acute (2) Obstipation Status: Acute (3) Acute kidney injury Status: Acute obstipation possible duodenal ulcer LEODAN vs. CKD bipolar disease elevated bp hypothyroid tobacco abuse - Laboratory Labs: 04/26/17 04:57 04/26/17 04:57 Laboratory Tests 04/23/17 04/24/17 04:36 04:57 TSH 6.63 H Free T4 1.29 Laboratory Tests 04/23/17 04/25/17 04:36 04:26 Meacham 1.6 H 1.6 H Laboratory Tests 04/23/17 04/23/17 04/24/17 01:27 04:36 04:57 Creatinine 1.8 H 1.7 H 1.6 H 04/25/17 04/26/17 04:26 04:57 Creatinine 1.4 H D 1.5 H D Laboratory Tests 04/23/17 02:46 Ur Collection Type Urine, clean catch Urine Color Yellow Urine Clarity Clear Urine pH 6.0 Ur Specific [place] 1.010 L Urine Protein Negative Urine Glucose (UA) Negative Urine Ketones Negative Urine Occult Blood Negative Urine Nitrate Negative Urine Bilirubin Negative Urine Urobilinogen 0.2 Ur Leukocyte Esterase Negative Laboratory Tests 04/25/17 06:20 Ur Random Creatinine 28.1 Ur Random Sodium 47 - Radiology Radiology: Date of Exam: 04/24/17 Ordering Provider: Isaak Gaviria Type of Exam(s): XR KUB w upright Reason for Exam(s): obstipation, abdominal pain Indication: obstipation, abdominal pain PROCEDURE: XR KUB w upright: Encounter: Initial Comparison: April 15, 2017 Findings: Lung bases are clear. No free air identified. Decreasing colonic stool burden with a moderate amount of stool remaining in the colon. No abnormally dilated small bowel loops appreciated. Bony structures are unchanged. Impression: No acute disease process seen. Improving constipation. Date of Exam: 04/23/17 Ordering Provider: Jos Gonzalez MD Type of Exam(s): CT abdomen pelvis w con Reason for Exam(s): progressive generalized abd pain Indication: progressive generalized abd pain PROCEDURE: CT abdomen pelvis w con: Encounter: Initial Comparison: None Technique: Axial CT images were performed through the abdomen and pelvis after the administration of intravenous contrast. Coronal and sagittal two-dimensional reformats. Automated Exposure Control and Iterative Reconstruction dose reducing techniques were utilized. Contrast: Visipaque 320 100 mL Findings: The lung bases are clear. Liver shows no enhancing mass or bile duct dilatation. The gallbladder is unremarkable. The spleen, pancreas and adrenal glands are within normal limits. The kidneys are normal. No abdominal or pelvic lymphadenopathy. Bladder is normal. Uterus is absent. No evidence of bowel obstruction. Possible wall thickening in the second portion of the duodenum with trace adjacent inflammation. Bone windows show no acute findings. Appendix is normal. Impression: Possible duodenitis versus ulcer disease in the second portion of the duodenum. Upper endoscopy may be helpful. History of Present Illness HPI: This is a 46 y/o female with a history of chronic constipation who presents to the ED tonight due to increased abdomen pain with ongoing nausea. The patient has been to the ED x 2 in the past week and seen PCP x 3 . The patient has been on miralax and enema at home without effect. Because of increased abdomen pain the patient had a CT of the abdomen which demonstrated changes in proximal duodenum which raised suspicion of duodenal ulcer. At this time the patient is to be admitted for further assessment of her chronic constipation and ongoing concern for duodenal ulcer. . Objective Vital signs: Temperature 98.3 F 04/26/17 07:48 Pulse Rate 76 04/26/17 07:48 Respiratory Rate 18 04/26/17 07:48 Blood Pressure 146/89 H 04/26/17 07:48 Pulse Oximetry 97 04/26/17 07:48 Height/Weight/BMI: Weight 124.2 kg - Constitutional Present: no acute distress, well nourished, well developed, obese - Routine HEENT Exam Head: Present: normocephalic - Routine Respiratory Exam Present: CTA bilaterally. Absent: wheezes - Routine Cardiovascular Exam Present: RRR, S1, S2. Absent: murmur - Routine Abdominal Exam Present: soft, normoactive bowel sounds, tenderness (mild, diffuse), non distended - Routine Extremities Exam Present: no edema, normal capillary refill - Routine Skin Exam Present: dry, warm - Routine Neurological Exam Present: alert, oriented X3, CN II-XII intact - Routine Lymphatic Exam Lymphatic: Absent: adenopathy - Routine Psychiatric Exam Present: normal affect, cooperative Hospital Course This is a general summary of the patient's hospital course. For more details refer to the complete medical record. Hospital course: 04/23/17 - hospital admission Enemas q2 until results. Start on scheduled Miralax. BID IV Protonix. HGB is wnl. Can defer EGD. Per patient, PCP has encouraged her to have colonoscopy, also. Continue IVF. Check urine Na, Cr. Monitor BP. Continue home psych meds. TSH elevated. Check free t4. Nicotine patch available. 04/24/17 Miralax with prn MOM ordered. Repeat soap suds enemas if needed. BID IV Protonix. HGB remains wnl. d/w patient deferring EGD because hgb is stable and she is on PPI treatment.. Per patient, PCP has encouraged her to have colonoscopy, also. Cr improved with IVF. urine Na, Cr pending. Monitor BP. Continue home psych meds. TSH elevated. Free t4 pending. Nicotine patch available. 2 BM's today 04/25/17 Continue scheduled Miralax. Advance to soft diet. Repeat BMP. Start amlodipine for elevated BP. Might be ready for dismissal tomorrow if she continues to improve. Had another BM today. 04/26/17 Pt wants to go home. Reports pain is about the same as it usually is at home. She has spoke with Jackeline Arshad and plans to decrease her Meacham. I spoke with Ms Canales as well and we agreed to keep her on the 450mg Meacham in the am and decrease her 2nd dose to 150mg qd until her f-u appt with Ms Canales on . Pt agreeable. Recommend pt continue Miralax BID (titrate as needed), increase fruits and veges and fluid intake and use bisacodyl 10mg if she goes more than a few days without a BM. May need further meds such as psyllium and/or senna to for bowel motivation. F-u with Dr. Atkinson within a week. Will have him f-u on her elevated creatinine as we have no records to know if this is acute or chronic. Also address her slightly elevated TSH, amlodipine started for HTN, and f-u on her bowel regimen. Started on omeprazole for possible duodenitis vs duodenal ulcer as reported on abdominal CT. PCP to determine if scope or further imaging is indicated. Time spent with patient: greater than 35 minutes DVT Prophylaxis: SCD's GI Prophylaxis: Protonix Discharge Plan - Discharge Disposition Discharge Date: 04/26/17 Disposition: 01 Discharged Home, Self-Care *Condition: Improved Reason For Visit (Visit label in EMR): obstipation - Discharge Medications *Discharge Medications: New Amlodipine [Norvasc] 5 mg PO DAILY #30 tab Milk of Magnesia [Mom] 30 ml PO BID PRN udc PRN Reason: Constipation Omeprazole 1 tab PO ACBID #60 tab PEG 3350 17gm PACKET [Miralax] 17 gm PO BID #30 packet Bisacodyl [Women's Laxative] 10 mg PO BID PRN #20 tab PRN Reason: Constipation Meacham Carbonate [Meacham] 150 mg PO HS #6 cap Continue Fenofibrate Nanocrystallized [Fenofibrate] 145 mg PO DAILY #0 Rosuvastatin Calcium [Crestor] 20 mg PO DAILY #0 Fesoterodine SR [Toviaz] 4 mg PO DAILY #0 Levothyroxine Sodium [Levoxyl] 1 tab PO DAILY Benztropine Mesylate 1 mg PO BID HydrOXYzine [Atarax] 50 mg PO HS HydrOXYzine [Atarax] 100 mg PO BIDBL Levothyroxine Sodium 200 mcg PO DAILY Quetiapine Fumarate 300 mg PO HS #0 ziprasidone 60 mg capsule 40 mg PO BID Changed Meacham Carbonate [Meacham Carbonate ER] 450 mg PO QAM #30 - Discharge Packet/Instructions *Diet: as tolerated. Eat 5-7+ servings of fruits and veges daily. Drink 64 oz of water daily. *Activity: As tolerated *Pain Management/Treatment: Tylenol, heating pad as needed. *Wound Care: n/a Additional Instructions: Take the Miralax 2x a day routinely. If you are having loose stools, or movements are too frequent, can back off to once daily. If you go more than 2 days without a bowel movement, take bisacodyl 10mg laxative. Take omeprazole 20mg 2x a day for abdominal pain and follow up with Dr. Atkinson. *Expected Signs/Symptoms: more routine bowel movements *Notify Physician if: you develop worsening abdominal pain *During Business Hours Contact: Dr Atkinson's office *After Business Hours Contact: Dr Atkinson's office and follow after hours instructions. *Pending Lab/Results: No Pending Lab - Referrals/Follow Up *Referrals/Follow Up: Bernabe Atkinson MD [Primary Care Provider] - (Please schedule pt for f-u in 1 wk APPOINTMENT 04/30 9AM.) Magda Canales APRN [Nurse Practitioner] - (Pt reports she has appt on Apr 30.) - Patient Handouts Patient Handouts: Obstipation (GEN) - Dismissal Complete Discharge Instructions are:: Complete <Isaak Gaviria IV - Last Filed: 04/26/17 20:42> Discharge Information Date of admission: 04/25/17 13:07 Attending Physician: Isaak Gaviria IV, MD Primary care physician: Bernabe Atkinson MD - Discharge Diagnosis (1) Duodenal ulcer Status: Acute (2) Obstipation Status: Acute (3) Acute kidney injury Status: Acute - Laboratory Labs: 04/26/17 04:57 04/26/17 04:57 Objective Vital signs: Temperature 98.3 F 04/26/17 07:48 Pulse Rate 76 04/26/17 07:48 Respiratory Rate 18 04/26/17 07:48 Blood Pressure 146/89 H 04/26/17 07:48 Pulse Oximetry 97 04/26/17 07:48 Height/Weight/BMI: Weight 124.2 kg Hospital Course This is a general summary of the patient's hospital course. For more details refer to the complete medical record. Attestation Narriative - Attestation Attestation Narrative: 04/26/17 20:34 I have independently evaluated and examined this patient. I reviewed the chart, the patient's history, and the WHITING MACHINE OPERATOR/PA's documented findings as above. We discussed and formulated the assessment and plan as above with additions as below: Rosemary says that she is doing better and that she is ready to go home. She has some occasional sharp, cramping pain. After much discussion about possible bowel regimens at home or continuing enemas here, she says she wants to go home. Understands she will need to f/u with Dr. Atkinson and psych (she wants to discuss adjusting her lithium). NAD, anicteric, ctab, rrr no murmur, mild tenderness diffusely, no edema. She is stable for dismissal but will need close f/u to manage her bowels. She is to f/u with Dr. Atkinson next week.
== END 2017-04-26 16:05 | disposition home or self-care (01) | DRG 392 ==
LOC: MED 01:02 → ED 01:02 → MED 03:30
PROVIDERS: ADMIT Emergency Medicine; ATTEND Hospitalist